=== PATIENT | male | born 1945 | race Caucasian/White ===

== ENCOUNTER → 2020-07-09 | Outpatient (CLI) | payer BC ==
[~2020-07-09] MED LIST: ASPIRIN 325MG325 MG PO; COZAAR100 MG PO; DILTIAZEM 24HR180 MG PO; FLONASE 0.05% N16 GM; LYRICA25 MG PO; MICROZIDE12.5 MG PO; VITAMIN D-40400 UNIT PO; VITAMIN D2000 UNIT PO; [UNRECOGNIZED DRUG - OTHER]
== END ==
LOC: KOH-I 15:27
DX: M25.512 Pain in left shoulder (principal); S42.292A Other displaced fracture of upper end of left humerus, initial encounter for closed fracture; S42.352A Displaced comminuted fracture of shaft of humerus, left arm, initial encounter for closed fracture; T84.028A Dislocation of other internal joint prosthesis, initial encounter
CPT/HCPCS: 73200